=== PATIENT | female | born 1990 | race American Indian/Alaskan Native ===

== ENCOUNTER 2017-07-06 08:59 | Emergency (ER) | payer MEDICAID ==
[2017-07-06 09:59] LABS: Basophils % (Auto) 0.6 % (0.0-1.8); Eosinophils % (Auto) 0.4 % (0.0-4.3); Hematocrit 38.2 % (30.3-42.9); Hemoglobin 12.2 gm/dl (10.1-14.3); Mean Corpuscular HGB Conc 32 % (30-34); Mean Corpuscular Hemoglobin 27 pg (28-32); Mean Corpuscular Volume 86 fl (79-97); Platelet Count 252 K/mm3 (140-440); Red Blood Count 4.47 M/mm3 (3.65-5.03); Red Cell Distribution Width 13.4 % (13.2-15.2); White Blood Count 5.2 K/mm3 (4.5-11.0)
--- NOTE | 2017-07-06 10:28 | Emergency Department Report ---
ED Female HPI - General Chief complaint: Vaginal Bleeding Stated complaint: 7 WKS PREG/BLEEDING Time Seen by Provider: 07/06/17 10:27 Source: patient Mode of arrival: Ambulatory Limitations: No Limitations - History of Present Illness Initial comments: Patient states that her last menstrual period was mid May. She noted some vaginal spotting over the past few days. She was concerned and had an ultrasound at an outlying clinic. They sent her to the emergency department after performing the ultrasound but no collected to send a record of care. Patient states that she does not have unassigned OB doctor yet. She is not complaining of any abdominal pain. She did not know her blood type. She did not complain of dysuria or discharge. She has not passed any clots. MD Complaint: vaginal bleeding -: Gradual, days(s) Consistency: intermittent Improves with: none Worsens with: none Are you Now?: Yes - Related Data Previous Rx's Medication Instructions Recorded Last Taken Type Nitrofurantoin Warrick/M-Cryst 100 mg PO Q12HR #14 capsule 07/06/17 Unknown Rx [Macrobid CAP] Allergies Allergy/AdvReac Type Severity Reaction Status Date / Time No Known Allergies Allergy Unverified 07/06/17 09:03 ED Review of Systems ROS: Stated complaint: 7 WKS PREG/BLEEDING Other details as noted in HPI Constitutional: denies: chills, fever Eyes: denies: eye pain, eye discharge, vision change ENT: denies: ear pain, throat pain Respiratory: denies: cough, shortness of breath, wheezing Cardiovascular: denies: chest pain, palpitations Endocrine: no symptoms reported Gastrointestinal: denies: abdominal pain, nausea, diarrhea Genitourinary: as per HPI. denies: urgency, dysuria, discharge Musculoskeletal: denies: back pain, joint swelling, arthralgia Skin: denies: rash, lesions Neurological: denies: headache, weakness, paresthesias Psychiatric: denies: anxiety, depression Hematological/Lymphatic: denies: easy bleeding, easy bruising ED Past Medical Hx - Past Medical History Previous Medical History?: No Additional medical history: 3 para 2 AB 0 - Surgical History Past Surgical History?: No - Social History Smoking Status: Never Smoker Substance Use Type: Marijuana - Medications Home Medications: Home Medications Medication Instructions Recorded Confirmed Last Taken Type Nitrofurantoin Warrick/M-Cryst 100 mg PO Q12HR #14 capsule 07/06/17 Unknown Rx [Macrobid CAP] ED Physical Exam - General Limitations: No Limitations General appearance: alert, in no apparent distress - Head Head exam: Present: atraumatic, normocephalic - Eye Eye exam: Present: normal appearance. Absent: scleral icterus - ENT ENT exam: Present: mucous membranes moist - Neck Neck exam: Present: normal inspection - Respiratory Respiratory exam: Present: normal lung sounds bilaterally. Absent: respiratory distress - Cardiovascular Cardiovascular Exam: Present: regular rate, normal rhythm. Absent: systolic murmur, diastolic murmur, rubs, gallop - GI/Abdominal GI/Abdominal exam: Present: soft, normal bowel sounds. Absent: distended, tenderness, guarding, rebound, rigid - Extremities Exam Extremities exam: Present: normal inspection - Back Exam Back exam: Present: normal inspection. Absent: CVA tenderness (R), CVA tenderness (L) - Neurological Exam Neurological exam: Present: alert, oriented X3, CN II-XII intact. Absent: motor sensory deficit - Psychiatric Psychiatric exam: Present: normal affect, normal mood - Skin Skin exam: Present: warm, dry, intact, normal color. Absent: rash ED Course Vital Signs 07/06/17 07/06/17 07/06/17 09:04 09:25 09:31 Temperature 98.6 F Pulse Rate 80 Respiratory 18 Rate Blood Pressure 111/76 118/71 Blood Pressure [Left] O2 Sat by Pulse 100 100 97 Oximetry 07/06/17 07/06/17 07/06/17 09:45 10:31 12:02 Temperature Pulse Rate 72 Respiratory 18 Rate Blood Pressure 118/71 118/71 Blood Pressure 132/78 [Left] O2 Sat by Pulse 86 99 Oximetry - Reevaluation(s) Reevaluation #1: No significant bleeding in the emergency department. Patient remained asymptomatic. The results of her ultrasound and urinalysis were explained to her. She is referred to OB for further care and evaluation, repeat ultrasound and follow-up on her urine culture test. 07/06/17 12:30 ED Medical Decision Making - Lab Data Result diagrams: 07/06/17 09:11 Laboratory Results - last 24 hr 07/06/17 07/06/17 07/06/17 09:11 09:11 09:18 WBC 5.2 RBC 4.47 Hgb 12.2 Hct 38.2 MCV 86 MCH 27 L MCHC 32 RDW 13.4 Plt Count 252 Lymph % (Auto) 36.2 H Warrick % (Auto) 8.8 H Eos % (Auto) 0.4 Baso % (Auto) 0.6 Lymph # 1.9 Warrick # 0.5 Eos # 0.0 Baso # 0.0 Seg Neutrophils % 54.0 Seg Neutrophils # 2.8 HCG, Quant 1421 H Blood Type O POSITIVE Antibody Screen Negative Critical care attestation.: If time is entered above; I have spent that time in minutes in the direct care of this critically ill patient, excluding procedure time. ED Disposition Clinical Impression: First trimester bleeding Acute cystitis Qualifiers: Hematuria presence: with hematuria Qualified Code(s): N30.01 - Acute cystitis with hematuria Disposition: TO HOME OR SELFCARE Is pt being admited?: No Does the pt Need Aspirin: No Condition: Stable Instructions: Urinary Tract Infection in Women (ED), Threatened Miscarriage (ED ) Additional Instructions: Rx for bladder infection. Follow-up on urine culture in 2-3 days. Return any acute change or problem, fever vomiting chills. Follow-up with OB physician for further care and evaluation. See referral. Prescriptions: Nitrofurantoin Warrick/M-Cryst [Macrobid CAP] 100 mg PO Q12HR #14 capsule Referrals: GABRIEL MURRAY MD [Primary Care Provider] - 3-5 Days CAL PLAZA MD [Staff Physician] - 2-3 Days Time of Disposition: 12:31
[2017-07-06 10:53] LABS: Bacteria,Urine 1+ /HPF (Negative); Bilirubin,Urine NEG (Negative); Blood,Urine LG (Negative); Ketones,Urine NEG (Negative); Leukocyte Esterase,Urine SM (Negative); Mucus,Urine 2+ /HPF; Nitrite,Urine NEG (Negative); Urobilinogen,Urine < 2.0 mg/dL (<2.0)
[2017-07-06 10:55] LABS: RBC,Urine > 182.0 /HPF (0.0-6.0)
--- NOTE | 2017-07-06 11:21 | Ultrasound Report ---
ULTRASOUND OB LESS THAN 14 WEEKS FETUS ULTRASOUND OB TRANSVAGINAL HISTORY: Bleeding during . TECHNIQUE: Transabdominal and transvaginal ultrasound with color and spectral doppler interrogation. The uterus measures 8 x 4 x 5 cm. No uterine mass is detected. The endometrial stripe measures up to 10 mm. There is a small cyst measuring 8.2 mm within the endometrial canal. This probably represents an early intrauterine gestational sac which correlates with a 5 week, 4 day . No pole, yolk sac or heart tones could be confidently identified. The ovaries are normal size, contour and echotexture. No adnexal mass or pelvic fluid collection. IMPRESSION: Probable early normal intrauterine . A gestational sac is identified but no clear pole or heart tones could be demonstrated at this time. Blighted ovum could also be considered. Close interval followup is recommended.
[2017-07-06 12:03] VITALS: BP 132/78
== END 2017-07-06 12:28 | disposition home or self-care (01) ==
LOC: ED 08:59
DX: O23.11 Infections of bladder in pregnancy, first trimester (principal); N30.01 Acute cystitis with hematuria; O20.9 Hemorrhage in early pregnancy, unspecified; O99.321 Drug use complicating pregnancy, first trimester; F12.10 Cannabis abuse, uncomplicated; Z3A.01 Less than 8 weeks gestation of pregnancy
CPT/HCPCS: 36415; 76801; 76817; 81001; 84702; 85025; 86850; 86900; 86901; 87086

== ENCOUNTER 2021-03-10 03:55 | Emergency (ER) | payer MEDICAID, OTHER ==
[2021-03-10] MEDS ORDERED: KETOROLAC 30 MG/1 ML INJ IM ONE (07:27)
[2021-03-10] MEDS ORDERED: PROCHLORPERAZINE MALEATE 10 MG TAB PO NR (07:27)
[2021-03-10] MEDS ORDERED: diphenhydrAMINE 25 MG CAP PO ONE (07:27)
[2021-03-10] MEDS ORDERED: BUTALB/ACETAMINOPHEN/CAFFEINE TAB PO ONE (07:27)
--- NOTE | 2021-03-10 07:35 | Emergency Department Report ---
<GABRIELEJAVIER HINSON - Last Filed: 03/10/21 12:31> ED General Adult HPI - General Chief complaint: Headache Stated complaint: VOMITING/MIGRAINE Time Seen by Provider: 03/10/21 07:26 Source: patient Mode of arrival: Ambulatory Limitations: No Limitations - History of Present Illness Initial comments: 30-year-old female patient presents emergency department complaints of a nontraumatic headache with associated nausea and vomiting starting 3 days ago. Pain is worse with bright lights and loud noises. Patient estimates she has experienced approximately 10 episodes of nonbloody emesis in the last 24 hours. No preceding fall or injury. Patient does not have a history of migraines. No known sick contacts. No current steroid or antibiotic use. Last was 2 years ago. Last menstrual period was 4 days ago. There is a family history of migraine headaches. She took ibuprofen at home with limited relief. Denies fever, chills, neck stiffness, rash, syncope, seizure, paresthesias, weakness, numbness. Denies all other complaints at this time. - Related Data Previous Rx's Medication Instructions Recorded Last Taken Type Nitrofurantoin Powell/M-Cryst 100 mg PO Q12HR #14 capsule 07/06/17 Unknown Rx [Macrobid CAP] Ondansetron [Zofran Odt] 4 mg PO Q8HR PRN #15 tab.rapdis 03/10/21 Unknown Rx Allergies Allergy/AdvReac Type Severity Reaction Status Date / Time No Known Allergies Allergy Unverified 07/06/17 09:03 ED Review of Systems Other: GENERAL: Negative for fever, chills, weight change, anorexia, fatigue. ENT: Negative for ear pain, difficulty hearing, sore throat, nasal congestion, epistaxis. CARDIOVASCULAR: Negative for chest pain, palpitations, lower extremity swelling. PULMONARY: Negative for cough, dyspnea, wheezing, orthopnea, cyanosis. GASTROINTESTINAL: Positive for nausea and vomiting MUSCULOSKELETAL: Negative for joint pain, joint swelling, myalgias, back pain, neck pain. NEUROLOGICAL: Positive for headache. INTEGUMENTARY: Negative for erythema, rash, diaphoresis, laceration, ecchymosis. HEMATOLOGICAL: Negative for hemoptysis, hematemesis, hematochezia, hematuria. PSYCHIATRIC: Negative for hallucinations, suicidal ideation, homicidal ideation, anxiety, depression. ED Past Medical Hx - Past Medical History Previous Medical History?: No Additional medical history: 3 para 2 AB 0 - Surgical History Past Surgical History?: No - Social History Smoking Status: Never Smoker Substance Use Type: Alcohol - Medications Home Medications: Home Medications Medication Instructions Recorded Confirmed Last Taken Type Nitrofurantoin Powell/M-Cryst 100 mg PO Q12HR #14 capsule 07/06/17 Unknown Rx [Macrobid CAP] Ondansetron [Zofran Odt] 4 mg PO Q8HR PRN #15 tab.rapdis 03/10/21 Unknown Rx ED Physical Exam - General Limitations: No Limitations - Other Other exam information: General: Awake and alert. No acute distress. Head: Atraumatic, normocephalic. No temporal artery tenderness. Eyes: EOMI. Pupils are equal and round, reactive to light, no nystagmus. Normal sclera and conjunctiva. ENT: Oral mucosa is moist. Normal pharyngeal exam. Neck: Supple. No lymphadenopathy. Pulmonary: No respiratory distress. Clear to auscultation bilaterally. Cardiac: Regular rate and rhythm. Pulses are palpable and equal bilaterally. No lower extremity cyanosis or edema. Skin: Warm and dry. No rashes. Abdomen: Soft, non-tender, non-protuberant. No guarding, rigidity, or rebound. Bowel sounds are normal. No organomegaly or masses noted. Back: Normal alignment. No CVA tenderness. Extremities: Symmetrical. Full range of motion intact. Neurological: Alert and oriented, appropriately interactive, no focal deficits. Ambulatory without assistance. Strength and sensation intact throughout. Psych: Cooperative. Appropriate mood and affect. Speech is evenly metered. Thoughts are logically construed. ED Medical Decision Making - Lab Data Result diagrams: 03/10/21 08:08 - Medical Decision Making Care of patient transferred to Dr. Mccormack, attending emergency physician, for further evaluation and final disposition. ED Disposition Clinical Impression: Headache Qualifiers: Headache type: unspecified Headache chronicity pattern: unspecified pattern Intractability: not intractable Qualified Code(s): R51.9 - Headache, unspecified Nausea & vomiting Qualifiers: Vomiting type: unspecified Vomiting Intractability: unspecified Qualified Code(s): R11.2 - Nausea with vomiting, unspecified Disposition: DC- TO HOME OR SELFCARE Condition: Stable Instructions: General Headache Without Cause, Nausea and Vomiting, Adult Additional Instructions: Please follow-up with a primary care physician in the next few days. Increase your oral rehydration. Return to the emergency department with any worsening of your symptoms, new or concerning symptoms not addressed during this current emergency department visit, or with any acute distress. Prescriptions: Ondansetron [Zofran Odt] 4 mg PO Q8HR PRN #15 tab.rapdis PRN Reason: Nausea Referrals: PRIMARY CAREMD [Primary Care Provider] - 3-5 Days ARISTEO NAVARRO MD [Staff Physician] - 3-5 Days [facility] [Provider Group] - 3-5 Days <JOSH MCCORMACK S - Last Filed: 03/10/21 12:43> ED General Adult HPI - History of Present Illness Initial comments: I also saw this patient, in conjunction with the AMBER Whitley, as the patient was moved to the main emergency department in room #22. This is a 30-year-old female who presents with complaint of a bitemporal and frontal headache that has been going on for the past 3 days. It is a throbbing sensation. She denies any fever, vision change, slurred speech, numbness or paresthesias, localized weak ness. She denies any history of recurrent headaches or migraines. It is currently 8 out of 10 in intensity. She tried some ibuprofen for her symptoms without any relief. She is sensitive to lights and noises. This has been associated with nausea with vomiting with multiple episodes of emesis. The vomiting worsens with any ingestion of any food or liquid and as of this morning the patient says that she was vomiting up some stomach acid/contents. ED Review of Systems ROS: Stated complaint: VOMITING/MIGRAINE Other details as noted in HPI Comment: All other systems reviewed and negative Constitutional: denies: chills, fever Eyes: other (Photophobia). denies: eye pain, vision change ENT: denies: ear pain, throat pain Respiratory: denies: cough, shortness of breath Cardiovascular: denies: chest pain, palpitations Gastrointestinal: denies: abdominal pain, vomiting Genitourinary: denies: dysuria, discharge Musculoskeletal: denies: back pain, arthralgia Skin: denies: rash, lesions Neurological: headache. denies: weakness, numbness, paresthesias ED Physical Exam - Other Other exam information: GENERAL: The patient is well-developed well-nourished. HENT: Normocephalic. Atraumatic. Patient has moist mucous membranes. EYES: Extraocular motions are intact. Pupils equal reactive to light bilaterally. No nystagmus. NECK: Supple. Trachea is midline. CHEST/LUNGS: Clear to auscultation. There is no respiratory distress noted. HEART/CARDIOVASCULAR: Regular. There is no tachycardia. ABDOMEN: Abdomen is soft, nontender. Patient has normal bowel sounds. There is no abdominal distention. SKIN: Skin is warm and dry. NEURO: The patient is awake, alert, and oriented. The patient is cooperative. The patient has no focal neurologic deficits. Normal speech. Cranial nerves II through XII grossly intact. No facial asymmetry. No pronator drift or dysmetria. MUSCULOSKELETAL: There is no tenderness or deformity. There is no limitation range of motion. ED Course Vital Signs 03/10/21 03/10/21 04:01 11:12 Temperature 98.7 F Pulse Rate 77 80 Respiratory 16 16 Rate Blood Pressure 111/72 Blood Pressure 115/80 [Right] O2 Sat by Pulse 100 98 Oximetry ED Medical Decision Making - Lab Data Result diagrams: 03/10/21 08:08 03/10/21 08:08 Lab Results 03/10/21 03/10/21 03/10/21 Range/Units 08:08 08:08 08:08 WBC 4.9 (4.5-11.0) K/mm3 RBC 4.13 (3.65-5.03) M/mm3 Hgb 11.9 (10.1-14.3) gm/dl Hct 35.5 (30.3-42.9) % MCV 86 (79-97) fl MCH 29 (28-32) pg MCHC 34 (30-34) % RDW 13.4 (13.2-15.2) % Plt Count 193 (140-440) K/mm3 Lymph % (Auto) 29.3 (13.4-35.0) % Powell % (Auto) 9.7 H (0.0-7.3) % Eos % (Auto) 0.0 (0.0-4.3) % Baso % (Auto) 0.6 (0.0-1.8) % Lymph # (Auto) 1.4 (1.2-5.4) K/mm3 Powell # (Auto) 0.5 (0.0-0.8) K/mm3 Eos # (Auto) 0.0 (0.0-0.4) K/mm3 Baso # (Auto) 0.0 (0.0-0.1) K/mm3 Seg Neutrophils % 60.4 (40.0-70.0) % Seg Neutrophils # 3.0 (1.8-7.7) K/mm3 Sodium 136 L (137-145) mmol/L Potassium 3.9 (3.6-5.0) mmol/L Chloride 101.0 (98-107) mmol/L Carbon Dioxide 26 (22-30) mmol/L Anion Gap 13 mmol/L BUN 8 (7-17) mg/dL Creatinine 0.7 (0.6-1.2) mg/dL Estimated GFR > 60 ml/min BUN/Creatinine Ratio 11 % Glucose 100 (65-100) mg/dL Calcium 8.9 (8.4-10.2) mg/dL Magnesium 1.70 (1.7-2.3) mg/dL Total Bilirubin 0.50 (0.1-1.2) mg/dL AST 18 (5-40) units/L ALT 14 (7-56) units/L Alkaline Phosphatase 47 (35-129) units/L Total Protein 6.9 (6.3-8.2) g/dL Albumin 3.9 (3.9-5) g/dL Albumin/Globulin Ratio 1.3 % HCG, Qual Negative (Negative) - Medical Decision Making This patient presented to the emergency department with a complaint of a 3-day history of a bitemporal and frontal headache, as well as some nausea with vomiting. Headache was associated with some mild photophobia and phonophobia, but the patient did not have any focal, motor or sensory deficits. Cranial nerves are intact. The patient is awake, alert, oriented and does not appear in any acute distress. An IV was placed and the patient was given some IV fluid resuscitation, Reglan and Benadryl. Labs have been unremarkable including CBC, metabolic panel and the patient is not . She was reevaluated multiple times over multiple hours and is feeling greatly improved. There has been no further vomiting since being in the emergency department and the patient has been able to pass an oral challenge. Vital signs have been reassuring throughout her ED course. For all these reason she appears safe for discharge home at this time. She has been given a prescription for Zofran ODT and instructed to follow-up with a PCP. Critical Care Time: No Critical care attestation.: If time is entered above; I have spent that time in minutes in the direct care of this critically ill patient, excluding procedure time. ED Disposition Is pt being admited?: No Time of Disposition: 10:33
[2021-03-10 08:20] LABS: Basophils % (Auto) 0.6 % (0.0-1.8); Hematocrit 35.5 % (30.3-42.9); Hemoglobin 11.9 gm/dl (10.1-14.3); Lymphocytes # (Auto) 1.4 K/mm3 (1.2-5.4); Lymphocytes % (Auto) 29.3 % (13.4-35.0); Mean Corpuscular HGB Conc 34 % (30-34); Mean Corpuscular Volume 86 fl (79-97); Monocytes # (Auto) 0.5 K/mm3 (0.0-0.8); Monocytes % (Auto) 9.7 % (0.0-7.3); Platelet Count 193 K/mm3 (140-440); Red Blood Count 4.13 M/mm3 (3.65-5.03); Red Cell Distribution Width 13.4 % (13.2-15.2)
[2021-03-10] MEDS ORDERED: METOCLOPRAMIDE 10 MG/2 ML INJ IV ONE (08:30)
[2021-03-10] MEDS ORDERED: SODIUM CHLORIDE 0.9% 1000 ML 1,000 ML IV ONE (08:30)
[2021-03-10] MEDS ORDERED: diphenhydrAMINE 50 MG/ML VIAL IV ONE (08:30)
[2021-03-10 08:42] LABS: Alanine Aminotransferase 14 units/L (7-56); Albumin 3.9 g/dL (3.9-5); Blood Urea Nitrogen 8 mg/dL (7-17); Calcium 8.9 mg/dL (8.4-10.2); Hemolysis Index 5
[2021-03-10 08:44] LABS: BUN/Creatinine Ratio 11
[2021-03-10 11:13] VITALS: BP 115/80
== END 2021-03-10 11:11 | disposition home or self-care (01) ==
LOC: ED 03:55
DX: R51.9 Headache, unspecified (principal); R11.2 Nausea with vomiting, unspecified; Z79.899 Other long term (current) drug therapy
CPT/HCPCS: 36415; 80053; 83735; 84703; 85025; 96361; 96374; 96375; 99283; J1200; J2765; J7030; Q0164

== ENCOUNTER 2022-03-13 15:59 | Emergency (ER) | payer OTHER ==
[2022-03-13] MEDS ORDERED: KETOROLAC 10 MG TAB PO ONE (16:32)
[2022-03-13] MEDS ORDERED: diphenhydrAMINE 25 MG CAP PO ONE (16:32)
[2022-03-13] MEDS ORDERED: dexAMETHasone 4 MG/ML VIAL IM ONE (16:32)
[2022-03-13] MEDS ORDERED: METOCLOPRAMIDE 10 MG TAB PO ONE (16:32)
--- NOTE | 2022-03-13 18:58 | Emergency Department Report ---
ED Headache HPI - General Chief Complaint: Anxiety Stated Complaint: PANIC ATTACK Time Seen by Provider: 03/13/22 16:31 - History of Present Illness Initial Comments: 31 yof with no pmh and no known family history of CAD presents to ed for evaluation of BRAR, dizziness, and chest pressure. 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 She states that she then started to get nervous and had some sob and chest pressure. She states that chest pressure was midsternal, non radiating and reproducible. She denies n/v and diaphoresis. Quality: moderate Associated Symptoms: denies: confusion, fatigue, facial pain, fever/chills, flushing, loss of consciousness, nausea/vomiting, nasal congestion, nasal drainage, numbness in legs/feet, rash, seizures, sinus infection, stiff neck, vision changes, weakness Allergies/Adverse Reactions: Allergies No Known Allergies Allergy (Verified 03/13/22 16:04) Home Medications: Ambulatory Orders Levocetirizine Dihydrochloride [Xyzal] 5 mg PO QPM #15 tab 03/13/22 methylPREDNISolone [Medrol 4MG DOSEPAK (21 tabs)] 4 mg PO DAILY #1 pack 03/13/22 ED Review of Systems ROS: Stated complaint: PANIC ATTACK Other details as noted in HPI Comment: All other systems reviewed and negative Constitutional: denies: chills, fever ENT: congestion Respiratory: denies: cough, SOB with exertion, SOB at rest, stridor, wheezing Cardiovascular: denies: chest pain, palpitations, dyspnea on exertion, orthopnea, edema, syncope, paroxysmal nocturnal dyspnea Gastrointestinal: denies: abdominal pain, nausea, vomiting Genitourinary: denies: urgency, dysuria, frequency, hematuria, discharge Neurological: headache. denies: weakness, numbness, paresthesias, confusion, abnormal gait ED Past Medical Hx - Past Medical History Previous Medical History?: Yes Additional medical history: 3 para 2 AB 0 - Surgical History Past Surgical History?: No - Social History Smoking Status: Never Smoker Substance Use Type: Alcohol - Medications Home Medications: Home Medications Medication Instructions Recorded Confirmed Last Taken Type Levocetirizine Dihydrochloride 5 mg PO QPM #15 tab 03/13/22 Unknown Rx [Xyzal] methylPREDNISolone [Medrol 4MG 4 mg PO DAILY #1 pack 03/13/22 Unknown Rx DOSEPAK (21 tabs)] ED Physical Exam - General Limitations: No Limitations General appearance: alert, in no apparent distress - Head Head exam: Present: atraumatic, normocephalic - Eye Eye exam: Present: normal appearance. Absent: conjunctival injection - ENT ENT exam: Absent: normal exam (bilateral nasal mucosal edema along with bilateral turbinate swelling and frontal area tenderness to palpaiton. ), normal orophraynx (erythema noted to posterior oropharynx. ) - Respiratory Respiratory exam: Present: normal lung sounds bilaterally, chest wall tenderness. Absent: respiratory distress, wheezes, rales, rhonchi, stridor - Cardiovascular Cardiovascular Exam: Present: regular rate, normal heart sounds - GI/Abdominal GI/Abdominal exam: Present: soft, normal bowel sounds. Absent: distended, tenderness, guarding, rebound, rigid - Extremities Exam Extremities exam: Present: normal inspection, full ROM, normal capillary refill. Absent: tenderness, pedal edema, joint swelling, calf tenderness - Back Exam Back exam: Present: normal inspection. Absent: CVA tenderness (R), CVA tenderness (L) - Neurological Exam Neurological exam: Present: alert, oriented X3, normal gait - Psychiatric Psychiatric exam: Present: normal affect, normal mood - Skin Skin exam: Present: warm, dry, intact, normal color ED Course Vital Signs 03/13/22 03/13/22 03/13/22 16:00 16:42 19:03 Temperature 98.1 F 98.0 F Pulse Rate 90 77 Respiratory 22 24 18 Rate Blood Pressure 115/76 121/74 [Left] O2 Sat by Pulse 100 99 Oximetry - Reevaluation(s) Reevaluation #1: 03/13/22 18:54 Headache improved, anxiety, chest pain, and shortness of breath resolved. Patient states that she feels much better. ED Medical Decision Making - EKG Data Interpretation: no acute changes, normal EKG - Medical Decision Making 31 yof with no pmh and no known family history of CAD presents to ed for evaluation of BRAR, dizziness, and chest pressure. 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 She st ates that she then started to get nervous and had some sob and chest pressure. She states that chest pressure was midsternal, non radiating and reproducible. She denies n/v and diaphoresis. EKG without any acute ischemic changes noted. Exam consistent with chest wall pain and sinusitis. Patient was treated with toradol, benadryl, reglan, and decadron for headache, and BRAR improved. She will be discharged home with medrol dose pack and xyzal. She is advised to take medications as directed and follow up with pcp if no improvement or worsening symptoms. She verbalized understanding of and agreement with plan of care. Critical care attestation.: If time is entered above; I have spent that time in minutes in the direct care of this critically ill patient, excluding procedure time. ED Disposition Clinical Impression: Headache Qualifiers: Headache type: unspecified Headache chronicity pattern: acute headache Intractability: not intractable Qualified Code(s): R51.9 - Headache, unspecified Sinusitis Qualifiers: Sinusitis location: frontal Chronicity: acute Recurrence: non-recurrent Qualified Code(s): J01.10 - Acute frontal sinusitis, unspecified Disposition: HOME / SELF CARE / HOMELESS Is pt being admited?: No Does the pt Need Aspirin: No Condition: Stable Instructions: Sinusitis, Adult, [id number], Sinus Headache, [id number] Additional Instructions: Take medications as prescribed. Follow-up with primary care provider if no improvement or worsening symptoms. Return to the emergency department as needed. Prescriptions: methylPREDNISolone [Medrol 4MG DOSEPAK (21 tabs)] 4 mg PO DAILY #1 pack Levocetirizine Dihydrochloride [Xyzal] 5 mg PO QPM #15 tab Referrals: ARISTEO NAVARRO MD [Staff Physician] - 3-5 Days Forms: Work/School Release Form(ED) Time of Disposition: 18:57
[2022-03-13 19:05] VITALS: BP 121/74
--- NOTE | 2022-03-15 10:46 | Electrocardiograph Report ---
[facility] Test Date: 2022-03-13 Test Time: 18:17:45 Pat Name: CYRUS PATTERSON Department: Room: Gender: F Watchstander: NURSE : 1990 Requested By: NIDHI OROZCO Order Number: [id number] Reading MD: Jaison Diego Measurements Intervals [place] Rate: 72 P: 35 CA: 174 QRS: -36 QRSD: 95 T: 53 QT: 404 QTc: 443 Interpretive Statements Sinus rhythm Left axis deviation No previous ECG available for comparison Electronically Signed On 03-15-2022 10:45:52 EDT by Jaison Diego
== END 2022-03-13 20:00 | disposition home or self-care (01) ==
LOC: ED 15:59
DX: R51.9 Headache, unspecified (principal); J32.9 Chronic sinusitis, unspecified; F10.20 Alcohol dependence, uncomplicated
CPT/HCPCS: 93005; 96372; 99283; J1100